=== PATIENT | female | born 1945 | race Caucasian/White ===

== ENCOUNTER 2023-12-29 10:28 | Emergency (ER) | payer OTHER, SELFPAY ==
[2023-12-29 10:31] VITALS: BP 214/101
[2023-12-29 11:06] VITALS: BP 167/107
[2023-12-29 11:07] VITALS: BMI 23.5
[2023-12-29 11:34] LABS: % Eosinophils 2.6 % (0-6); % Immature Granulocytes 0.3 % (0-0.5); % Lymphocytes 43.6 % (20.5-51.1); % Monocytes 7.9 % (1.7-9.3); % Neutrophils 44.6 % (42.2-75.2); Absolute Eosinophils 0.1 10^3/uL (0-0.7); Absolute Lymphocytes 1.3 10^3/uL (1.2-3.4); Absolute Monocytes 0.2 10^3/uL (0.1-0.6); Absolute Neutrophils 1.4 10^3/uL (1.4-6.5); Hematocrit 40.8 % (37.0-47.0); Hemoglobin 14.1 g/dL (12.0-16.0); Mean Corp Hgb Conc. 34.6 g/dL (33.0-37.0); Mean Corpuscular Hgb 31.4 pg (27.0-31.0); Mean Corpuscular Volume 90.9 fL (81.0-99.0); Mean Platelet Volume 11.3 fL (7.4-10.4); Nucleated Red Blood Cells % 0 %; Platelet Count 183 10^3/uL (130-400); Red Blood Cell Count 4.49 10^6/uL (4.20-5.40); Red Cell Dist. Width 13.1 % (11.5-14.5); White Blood Cell Count 3.1 10^3/uL (4.8-10.8)
[2023-12-29 11:49] LABS: ALT (SGPT) 22 U/L (0-35); AST (SGOT) 32 U/L (14-36); Albumin 4.4 g/dl (3.5-5.0); Alkaline Phosphatase 71 U/L (38-126); Blood Urea Nitrogen 21 mg/dl (7-17); Calcium 10.3 mg/dl (8.4-10.2); Carbon Dioxide 30 mmol/L (22-30); Chloride 105 mmol/L (98-107); Estimated Creatinine Clearance 72 ml/min; Glucose 92 mg/dl (70-99); Potassium 3.6 mmol/L (3.5-5.1); Sodium 142 mmol/L (135-145); Total Bilirubin 0.7 mg/dl (0.2-1.3); eGFR > 60.00
[2023-12-29 12:00] LABS: Troponin I < 0.012 ng/ml
[2023-12-29 12:06] VITALS: BP 172/82
--- NOTE | 2023-12-29 12:26 | ED.GENMED ---
History of Present Illness
General
Chief Complaint: Abnormal Lab Value
Source: patient and spouse
Time Seen by Provider: 12/29/23 11:03
Travel History
Have you had any contact with someone who has COVID-19?: No
Do you have any symptoms of coronavirus? Fever > 100 degrees, chills, cough, shortness of breath, sore throat, loss of taste or smell, muscle aches, or headache?: No
History of Present Illness
History of Present Illness:
78-year-old female presents to the emergency room after receiving a call from her primary care provider that she had a abnormal potassium. Patient had the blood work performed as part of her yearly physical. She has not been experiencing any
particular symptoms other than mild constipation and feeling like she has 'returned to normal' from a severe headache she had in July 2022. The symptoms however have been longstanding. Patient denies any known history of kidney disease.
Past History
Past History
ED Past Medical History: CAD
ED Past Surgical History: Cardiac
Patient has exhibited threatening behavior?: No
PSI?: No
Social History
Tobacco: Non-smoker
Living: with family
Employment: Employed
Family History
Family History: Early CAD and CAD
Phy Exam
Physical Exam
Physical Exam:
General: Awake, Alert, Oriented X3. No acute distress.
Vitals: unremarkable
Head: Atraumatic
Eyes: Pupils equal, EOMI
Throat: Airway intact, no exudates
Neck: Trachea midline
Abd: Soft, Nontender, No pulsatile mass
Neuro: Grossly nonfocal
Skin: Warm, dry, no rash
Extremities: pulses equal b/l, no edema
Course
Orders/Labs/Results
Orders:
Orders
12/29/23 11:14
EKG- Treatment ONCE
12/29/23 11:18
Complete Blood Count/With Diff Urgent
Comprehensive Metabolic Panel Urgent
Troponin I Urgent
Abnormal Lab Results
12/29/23
11:18
WBC 3.1 L 10^3/uL
(4.8-10.8)
MCH 31.4 H pg
(27.0-31.0)
MPV 11.3 H fL
(7.4-10.4)
BUN 21 H mg/dl
(7-17)
Calcium 10.3 H mg/dl
(8.4-10.2)
12/29/23 11:18
12/29/23 11:18
Vital Signs
Initial and Last Documented VS:
Initial Vital Signs
Temp Pulse Resp BP Pulse Ox
98.7 F 60 16 214/101 100
12/29/23 10:31 12/29/23 10:31 12/29/23 10:31 12/29/23 10:31 12/29/23 10:31
Last Documented Vital Signs
Temp Pulse Resp BP Pulse Ox
98.7 F 55 14 157/86 97
12/29/23 10:31 12/29/23 12:45 12/29/23 12:45 12/29/23 12:43 12/29/23 12:45
MDM/Problems Addressed
Differential Diagnosis Includes:
Pseudohyperkalemia, renal insufficiency
MDM/Problems Addressed:
Patient's repeat potassium is normal. Certainly the test was high due to hemolysis. No further intervention necessary patient discharged
*Pulse Oximetry
Patient hypoxic: no
*Critical Care Note
Total Time (30-74mins, 75-104mins- exclusive of procedures): Not Applicable
ED Attending Note
-
Portions of this chart may have been created with voice recognition software.� Occasional wrong word or��sound alike� substitutions may have occurred due to the inherent limitations of voice recognition software.
Discharge Plan
Departure
Patient Disposition: Home (Routine Discharge)
Date of Disposition: 12/29/23
Time of Disposition: 12:31
Patient with high blood pressure during this ER visit?: Yes
Condition: Good
Discharge Problem:
pseudohyperkalemia
Prescriptions:
No Action
aspirin 81 MG tablet,delayed release (DR/EC)
81 mg PO DAILY Qty: 0 0RF
nitroglycerin 0.4 MG tablet, sublingual
0.4 mg sublingual [id number] PRN (Reason: Chest Pain or SBP>150) Qty: 25 3RF
polyvinyl alcohol [Artificial Tears Plus] 1.4 % Drops
1 drp BOTH EYES DAILYPRN PRN (Reason: dry eyes)
prednisolone acetate 1 % Drops,Suspension
1 drp LEFT EYE BID
lisinopril 40 mg Tablet
40 mg PO DAILY
bisacodyl 5 mg Tablet
5 mg PO DAILYPRN PRN (Reason: constipation)
ezetimibe 10 mg Tablet
10 mg PO DAILY
coenzyme Q10 [CoQ-10] 100 mg Capsule
100 mg PO QPM
cholecalciferol (vitamin D3) [Vitamin D3] 125 mcg (5,000 unit) Tablet
125 mcg PO QPM
Ilevro 0.3 % Drops,Suspension
1 drp LEFT EYE DAILY
PreserVision AREDS-2 250-90-40-1 mg Capsule
1 tab PO BID
saffron extract 176.5 mg Tablet
250 mg PO QPM
Folate 800 mg tablet
800 mg PO QPM
Magnesium L-Threonate 2,000 mg capsule
2,000 mg PO QPM
Mushroom Powder 2 g powder
2 g PO QPM
Referrals:
Kenan Villanueva MD [Active] -
Maty Booker MD [Family Provider] -
Activity Restrictions/Additional Instructions:
Your potassium level was not truly elevated but was just high from lab error. No further treatment is necessary in the emergency room. From a constipation standpoint I would recommend MiraLAX 1-2 capfuls a day. I have given you the contact
information for one of our neurologists to follow-up with in relation to your not feeling back to normal from the headache you had 18 months ago.
Interventions
Interventions:
*Risk Screen - Suicide Last Done: 12/29/23 11:09
*General Assessment Last Done: 12/29/23 11:16
*Neglect/Abuse Screening Last Done: 12/29/23 11:09
ED- Fall Risk Assessment Last Done: 12/29/23 11:11
*ED COVID-19 Vaccine History Last Done: 12/29/23 10:31
*Nursing Disposition Last Done: 12/29/23 12:49
Discharge Date and Time
Discharge Date/Time: 12/29/23 12:57
Print Language: VIETNAMESE
[2023-12-29 12:43] VITALS: BP 157/86
== END 2023-12-29 12:57 | disposition home or self-care (01) ==
LOC: EMR 10:28
PROVIDERS: EMERGENCY PHYSICIAN Emergency Medicine; FAMILY PHYSICIAN Family Medicine
DX: R79.89 Other specified abnormal findings of blood chemistry (principal); I25.10 Atherosclerotic heart disease of native coronary artery without angina pectoris; Z82.49 Family history of ischemic heart disease and other diseases of the circulatory system
CPT/HCPCS: 99283; 80053; 84484; 85025

== ENCOUNTER 2024-08-15 12:50 | Emergency (ER) | payer OTHER, SELFPAY ==
[2024-08-15 13:26] VITALS: BP 161/107
[2024-08-15 13:52] LABS: % Basophils 1.1 % (0-2); % Eosinophils 1.7 % (0-6); % Lymphocytes 40.3 % (20.5-51.1); % Monocytes 8.9 % (1.7-9.3); Absolute Eosinophils 0.1 10^3/uL (0-0.7); Absolute Lymphocytes 1.4 10^3/uL (1.2-3.4); Absolute Monocytes 0.3 10^3/uL (0.1-0.6); Absolute Neutrophils 1.7 10^3/uL (1.4-6.5); Hematocrit 40.1 % (37.0-47.0); Hemoglobin 13.6 g/dL (12.0-16.0); Mean Corp Hgb Conc. 33.9 g/dL (33.0-37.0); Mean Corpuscular Hgb 30.8 pg (27.0-31.0); Mean Corpuscular Volume 90.7 fL (81.0-99.0); Mean Platelet Volume 11.1 fL (7.4-10.4); Nucleated Red Blood Cells % 0 %; Platelet Count 179 10^3/uL (130-400); Red Blood Cell Count 4.42 10^6/uL (4.20-5.40); Red Cell Dist. Width 13.6 % (11.5-14.5); White Blood Cell Count 3.5 10^3/uL (4.8-10.8)
[2024-08-15 13:57] LABS: ALT (SGPT) 16 U/L (0-35); AST (SGOT) 29 U/L (14-36); Albumin 4.6 g/dl (3.5-5.0); Alkaline Phosphatase 61 U/L (38-126); Blood Urea Nitrogen 18 mg/dl (7-17); Calcium 10.2 mg/dl (8.4-10.2); Carbon Dioxide 31 mmol/L (22-30); Chloride 97 mmol/L (98-107); Glucose 95 mg/dl (70-99); Lipase 67 U/L (23-300); Potassium 3.6 mmol/L (3.5-5.1); Sodium 135 mmol/L (135-145); Total Bilirubin 0.5 mg/dl (0.2-1.3); eGFR > 60.00
[2024-08-15 15:32] VITALS: BP 185/85
--- NOTE | 2024-08-15 16:36 | ED.GENMED ---
History of Present Illness
General
Chief Complaint: Bowel Problem
Source: patient
Exam Limitations: none
Time Seen by Provider: 08/15/24 16:08
Nursing documentation reviewed up to this point in time: agreed with
History of Present Illness
History of Present Illness:
pt is a 79 y/o F with h/o CAD sp cabg, htn, hld
here with consitpation x 10 days
says she normally doesn't have this problem
she tried some doculax without relief
didn't try an enema
no stool softeners
no abd pain, nausea, vomiting, is still able to eat/drink normally
no opiates, no iron tabs
Past History
Past History
ED Past Medical History: CAD
ED Past Surgical History: Cardiac
Patient has exhibited threatening behavior?: No
PSI?: No
Social History
Tobacco: Non-smoker
Living: with family
Employment: Employed
Family History
Family History: Early CAD and CAD
Review of Systems
Review of Systems
Allergies reviewed?: Yes
All Other Systems: Not applicable
Phy Exam
Physical Exam
Physical Exam:
GENERAL: Alert , in no apparent distress
EYE: pupils equal and reactive
NECK: Supple
ENT: o/p clr, mmm.
CARDIAC: Regular rate and rhythm .
LUNGS: Clear breath sounds bilaterally, no acute respiratory distress, no wheezes/rales/rhonchi
ABDOMEN: Soft, without focal tenderness, no r/g, no cvat, normal bowel sounds
recutm: external hemrrhoids, nonbleeding, nonthrombosed
no significant rectal stool burden
NEUROLOGICAL: Alert and oriented, no focal neuro deficits
SKIN: Warm and dry, skin intact.
MUSCULOSKELETAL: No edema, well perfused. neg kanwal's sign
PSYCH: Normal and appropriate interaction.
Course
Orders/Labs/Results
Orders:
Orders
08/15/24 13:30
Abdominal Series [CR Obstruct Series W/pa Chest] Urgent
Comment:
Reason For Exam: constipation
08/15/24 13:36
Complete Blood Count/With Diff Urgent
Comprehensive Metabolic Panel Urgent
Lipase Urgent
08/15/24 16:35
Enema- Treatment ONCE
Type: Milk of Molasses
Abnormal Lab Results
08/15/24
13:36
WBC 3.5 L 10^3/uL
(4.8-10.8)
MPV 11.1 H fL
(7.4-10.4)
Chloride 97 L mmol/L
(98-107)
Carbon Dioxide 31 H mmol/L
(22-30)
BUN 18 H mg/dl
(7-17)
08/15/24 13:36
08/15/24 13:36
Vital Signs
Initial and Last Documented VS:
Initial Vital Signs
Temp Pulse Resp BP Pulse Ox
36.6 C 70 16 161/107 99
08/15/24 13:26 08/15/24 13:26 08/15/24 13:26 08/15/24 13:26 08/15/24 13:26
Last Documented Vital Signs
Temp Pulse Resp BP Pulse Ox
36.8 C 56 18 172/74 99
08/15/24 17:50 08/15/24 17:50 08/15/24 17:50 08/15/24 17:50 08/15/24 17:50
MDM/Problems Addressed
Differential Diagnosis Includes:
consitpaiton, bowel obstrutction
MDM/Problems Addressed:
79 y/o F
10 days constipation
tried doculax a few times no releif
eating, drinking, no pain, no fever
well appearing
nontender abdomen
no fecal impaction
had good relief with enema
xray showed large stool burden
she went twice here
recommend metamucil plus/minus some miralax for 1-2 days
return preacatuions
appreciate htn
*Critical Care Note
Total Time (30-74mins, 75-104mins- exclusive of procedures): Not Applicable
ED Attending Note
-
Portions of this chart may have been created with voice recognition software.� Occasional wrong word or��sound alike� substitutions may have occurred due to the inherent limitations of voice recognition software.
Discharge Plan
Departure
Patient Disposition: Home (Routine Discharge)
Date of Disposition: 08/15/24
Time of Disposition: 17:36
Patient with high blood pressure during this ER visit?: Yes
Condition: Fair
Discharge Problem:
Constipation
Instructions: Constipation, Adult (DC), BLOOD PRESSURE
Prescriptions:
No Action
aspirin 81 MG tablet,delayed release (DR/EC)
81 mg PO DAILY Qty: 0 0RF
nitroglycerin 0.4 MG tablet, sublingual
0.4 mg sublingual [id number] PRN (Reason: Chest Pain or SBP>150) Qty: 25 3RF
polyvinyl alcohol [Artificial Tears Plus] 1.4 % Drops
1 drp BOTH EYES DAILYPRN PRN (Reason: dry eyes)
prednisolone acetate 1 % Drops,Suspension
1 drp LEFT EYE BID
lisinopril 40 mg Tablet
40 mg PO DAILY
bisacodyl 5 mg Tablet
5 mg PO DAILYPRN PRN (Reason: constipation)
ezetimibe 10 mg Tablet
10 mg PO DAILY
coenzyme Q10 [CoQ-10] 100 mg Capsule
100 mg PO QPM
cholecalciferol (vitamin D3) [Vitamin D3] 125 mcg (5,000 unit) Tablet
125 mcg PO QPM
Ilevro 0.3 % Drops,Suspension
1 drp LEFT EYE DAILY
PreserVision AREDS-2 250-90-40-1 mg Capsule
1 tab PO BID
saffron extract 176.5 mg Tablet
250 mg PO QPM
Folate 800 mg tablet
800 mg PO QPM
Magnesium L-Threonate 2,000 mg capsule
2,000 mg PO QPM
Mushroom Powder 2 g powder
2 g PO QPM
Referrals:
Maty Booker MD [Family Provider] -
Activity Restrictions/Additional Instructions:
YOUR XRAY SHOWS A LARGE AMOUNT OF STOOL IN YOUR COLON
TRY MIRALAX TWICE A DAY FOR 3 DAYS (IF YOU HAVE A BOWEL MOVEMENT BEOFRE THIS THEN YOU CAN STOP)
METAMUCIL DAILY FOR STOOL SOFTENER (EVERY DAY)
DRINK FLUIDS
FOLLOW UP WITH YOUR DOCTOR
YOUR BLOOD PRESSURE WAS ELEVATED
RETURN FOR: PAIN, VOMITING, FEVER, ETC.
Interventions
Interventions:
*Risk Screen - Suicide Last Done: 08/15/24 17:08
*General Assessment Last Done: 08/15/24 17:08
*Neglect/Abuse Screening Last Done: 08/15/24 17:08
*ED COVID-19 Vaccine History Last Done: 08/15/24 17:08
*Nursing Disposition Last Done: 08/15/24 17:52
FT-Kuvghb-Cmwppxqjly Assessment Last Done: 08/15/24 17:08
Discharge Date and Time
Discharge Date/Time: 08/15/24 17:57
Print Language: TRISTANIAN
[2024-08-15 17:50] VITALS: BP 172/74
== END 2024-08-15 17:57 | disposition home or self-care (01) ==
LOC: EMR 12:50
PROVIDERS: Emergency Medicine; EMERGENCY PHYSICIAN Emergency Medicine; FAMILY PHYSICIAN Family Medicine
DX: K59.00 Constipation, unspecified (principal); I25.10 Atherosclerotic heart disease of native coronary artery without angina pectoris; I10 Essential (primary) hypertension; E78.5 Hyperlipidemia, unspecified; Z82.49 Family history of ischemic heart disease and other diseases of the circulatory system; Z95.1 Presence of aortocoronary bypass graft
CPT/HCPCS: 99283; 74022; 80053; 83690; 85025

== ENCOUNTER → 2025-04-26 08:27 | Outpatient (REF) | payer OTHER, SELFPAY | LOC: RCS 08:27 | PROVIDERS: ATTENDING PHYSICIAN Internal Medicine; FAMILY PHYSICIAN Family Medicine | DX: I25.810 Atherosclerosis of coronary artery bypass graft(s) without angina pectoris (principal) | CPT/HCPCS: 93306 ==

== ENCOUNTER → 2025-05-08 07:46 | Outpatient (REF) | payer OTHER, SELFPAY | LOC: HWRCS 07:46 | PROVIDERS: ATTENDING PHYSICIAN Internal Medicine; FAMILY PHYSICIAN Family Medicine | DX: I25.810 Atherosclerosis of coronary artery bypass graft(s) without angina pectoris (principal) | CPT/HCPCS: 78452; 93017; A9500; J2785 ==